=== PATIENT | female | born 1960 | race Caucasian/White ===

== ENCOUNTER → 2019-09-07 09:20 | Outpatient (BNVA) | payer MEDICARE, SELFPAY | PROVIDERS: Family Provider Nurse Practitioner; Visit Provider Nurse Practitioner | DX: F41.1 Generalized anxiety disorder (principal); F33.1 Major depressive disorder, recurrent, moderate; F17.211 Nicotine dependence, cigarettes, in remission | CPT/HCPCS: 99214 ==

== ENCOUNTER → 2019-11-27 07:52 | Outpatient (BNVA) | payer MEDICARE, SELFPAY | PROVIDERS: Family Provider Nurse Practitioner; Visit Provider Nurse Practitioner | DX: F33.1 Major depressive disorder, recurrent, moderate (principal); F41.1 Generalized anxiety disorder | CPT/HCPCS: 99213 ==

== ENCOUNTER → 2020-03-14 09:33 | Outpatient (BNVA) | payer MEDICARE, SELFPAY | PROVIDERS: Family Provider Nurse Practitioner; Visit Provider Nurse Practitioner | DX: F41.1 Generalized anxiety disorder (principal); F33.1 Major depressive disorder, recurrent, moderate; F17.211 Nicotine dependence, cigarettes, in remission | CPT/HCPCS: 99214 ==

== ENCOUNTER 2020-06-05 11:29 | Outpatient (CLI) | payer MEDICARE, SELFPAY ==
--- NOTE | 2020-06-05 11:38 | MM_ITS ---
WS: [id number] BILATERAL SCREENING DIGITAL MAMMOGRAM WITH CAD HISTORY: SCREENING COMPARISON: 01/20/2019 and 05/07/2017 Bilateral CC and MLO views submitted. Computer aided detection analyzed. Breast composition: The breasts are heterogeneously dense, which may obscure small masses. No suspici ous masses, microcalcifications or architectural distortion. MM/[place] [id number] IMPRESSION: BI-RADS: 1-Negative FOLLOW UP: 1 Year Follow-up
== END 2020-06-05 11:30 | disposition home or self-care (01) ==
LOC: RADSHAW 11:36
PROVIDERS: Family Provider Nurse Practitioner; PCP Nurse Practitioner; Visit Provider Nurse Practitioner
DX: Z12.31 Encounter for screening mammogram for malignant neoplasm of breast (principal)
CPT/HCPCS: 77067

== ENCOUNTER → 2020-06-28 08:59 | Outpatient (BNVA) | payer MEDICARE, SELFPAY | PROVIDERS: Family Provider Nurse Practitioner; PCP Nurse Practitioner; Visit Provider Nurse Practitioner | DX: F33.1 Major depressive disorder, recurrent, moderate (principal); F41.1 Generalized anxiety disorder | CPT/HCPCS: 99213 ==

== ENCOUNTER → 2020-09-27 12:19 | Outpatient (BNVA) | payer MEDICARE, SELFPAY | PROVIDERS: Family Provider Nurse Practitioner; PCP Nurse Practitioner; Visit Provider Nurse Practitioner | DX: F33.1 Major depressive disorder, recurrent, moderate (principal); F41.1 Generalized anxiety disorder; F17.211 Nicotine dependence, cigarettes, in remission | CPT/HCPCS: 99214 ==

== ENCOUNTER 2020-10-14 10:27 | Outpatient (CLI) | payer MEDICARE, SELFPAY ==
--- NOTE | 2020-10-14 10:47 | XR_ITS ---
WS: [id number] HAND LEFT TECHNIQUE: 3 views of the left hand CLINICAL INFORMATION: PAIN IN LEFT HAND COMPARISON: None. FINDINGS: Normal metacarpals. Normal MCP joint. Metacarpal heads are normal in appearance. Mild narrowing of th e IP joints. No evidence of acute fracture or dislocation. Radiocarpal joint: Mild narrowing Carpal bones: Normal. XR/XR hand LT min 3V* [id number] IMPRESSION: No acute fractures.
== END 2020-10-14 10:28 | disposition home or self-care (01) ==
PROVIDERS: PCP Nurse Practitioner; Visit Provider Nurse Practitioner Family
DX: M79.642 Pain in left hand (principal); M25.50 Pain in unspecified joint
CPT/HCPCS: 73130

== ENCOUNTER → 2020-11-08 08:18 | Outpatient (BNVA) | payer MEDICARE, SELFPAY | PROVIDERS: PCP Nurse Practitioner; Visit Provider Nurse Practitioner | DX: F33.1 Major depressive disorder, recurrent, moderate (principal); F41.1 Generalized anxiety disorder; F17.211 Nicotine dependence, cigarettes, in remission | CPT/HCPCS: 99214 ==

== ENCOUNTER → 2020-12-18 10:48 | Outpatient (BNVA) | payer MEDICARE, SELFPAY | PROVIDERS: PCP Nurse Practitioner; Referring Provider Nurse Practitioner Family; Visit Provider Specialist | DX: G56.02 Carpal tunnel syndrome, left upper limb (principal); G56.00 Carpal tunnel syndrome, unspecified upper limb | CPT/HCPCS: 36415; 73110; 80053; 85651; 86140; 86160; 86162; 86235; 86255; 86376; 86431 ==

== ENCOUNTER 2020-12-18 15:15 | Outpatient (CLI) | payer MEDICARE, SELFPAY | END 2020-12-18 15:16 | disposition home or self-care (01) | LOC: LAB 15:20 | PROVIDERS: PCP Nurse Practitioner; Visit Provider Specialist | DX: G56.00 Carpal tunnel syndrome, unspecified upper limb (principal) | CPT/HCPCS: 36415; 80053; 85651; 86140; 86160; 86162; 86235; 86255; 86376; 86431 ==

== ENCOUNTER → 2021-02-11 07:15 | Outpatient (BNVA) | payer MEDICARE, SELFPAY | PROVIDERS: PCP Nurse Practitioner; Visit Provider Nurse Practitioner | DX: F33.1 Major depressive disorder, recurrent, moderate (principal); F41.1 Generalized anxiety disorder; F17.211 Nicotine dependence, cigarettes, in remission | CPT/HCPCS: 99214 ==

== ENCOUNTER 2021-03-31 11:25 | Outpatient (CLI) | payer MEDICARE, SELFPAY ==
--- NOTE | 2021-03-31 11:37 | XR_ITS ---
WS: [id number] LATERAL LUMBAR SPINE: 3 view. Lateral radiographs are performed in upright neutral, flexion and extension to the patient's toleranc e. HISTORY: LOW BACK PAIN COMPARISON: 08/02/2006 Increase in lumbar lordosis. Fixation hardware is noted extending from T12 to L2. L2 retrolisthesis b y 3 to 4 mm does not change significantly with flexion or extension. The remaining lumbar vertebral b odies are normally aligned. The hardware as visualized is normally aligned. XR/XR lumbar spine f/e only [id number] IMPRESSION: 1. No lumbar spine instability. 2. Fixation hardware extends from T12 to L2. No complications or fracture.
== END 2021-03-31 11:26 | disposition home or self-care (01) ==
LOC: RAD 11:32
PROVIDERS: PCP Nurse Practitioner; Visit Provider Nurse Practitioner
DX: M54.5 Low back pain (principal)
CPT/HCPCS: 72120

== ENCOUNTER → 2021-05-21 08:13 | Outpatient (BNVA) | payer MEDICARE, SELFPAY | PROVIDERS: PCP Nurse Practitioner; Visit Provider Nurse Practitioner | DX: F33.1 Major depressive disorder, recurrent, moderate (principal); F41.1 Generalized anxiety disorder | CPT/HCPCS: 99214 ==

== ENCOUNTER → 2021-07-29 08:03 | Outpatient (BNVA) | payer MEDICARE, SELFPAY | PROVIDERS: PCP Nurse Practitioner; Visit Provider Nurse Practitioner | DX: F33.1 Major depressive disorder, recurrent, moderate (principal); F41.1 Generalized anxiety disorder; F17.211 Nicotine dependence, cigarettes, in remission | CPT/HCPCS: 99214 ==

== ENCOUNTER → 2021-08-16 18:58 | Outpatient (BNVA) | payer MEDICARE, SELFPAY | PROVIDERS: PCP Nurse Practitioner; Visit Provider Nurse Practitioner | DX: R39.9 Unspecified symptoms and signs involving the genitourinary system (principal); N39.0 Urinary tract infection, site not specified | CPT/HCPCS: 81000 ==

== ENCOUNTER 2021-08-18 11:51 | Outpatient (CLI) | payer MEDICARE, SELFPAY ==
--- NOTE | 2021-08-18 12:02 | MM_ITS ---
WS: [id number] SCREENING DIGITAL MAMMOGRAM WITH CAD HISTORY: SCREENING COMPARISON: 06/05/2020, 01/20/2019 and 05/07/2017 Bilateral CC and MLO views submitted. Computer aided detection analyzed. Breast composition: The breasts are heterogeneously dense, which may obscure small masses. Asymmetry seen on the RIGHT MLO projection central to the nipple measures 9 mm. This asymmetry is more prominen t as compared to 01/20/2019. Not definitely seen on the CC projection. There are benign calcifications in the LEFT breast. MM/[place] [id number] IMPRESSION: BI-RADS: 0-Incomplete: Need additional imaging evaluation FOLLOW UP: Need Additional Imaging RIGHT breast: Spot compression views (CC and MLO). True ML. Ultrasound to follo w if abnormality persists.
== END 2021-08-18 11:52 | disposition home or self-care (01) ==
LOC: RADSHAW 12:00
PROVIDERS: PCP Nurse Practitioner; Visit Provider Nurse Practitioner Family
DX: Z12.31 Encounter for screening mammogram for malignant neoplasm of breast (principal)
CPT/HCPCS: 77067

== ENCOUNTER 2021-09-09 11:16 | Outpatient (CLI) | payer MEDICARE, SELFPAY ==
--- NOTE | 2021-09-09 11:36 | US_ITS ---
WS: [id number] ADDITIONAL VIEWS RIGHT BREAST RIGHT breast ultrasound, limited HISTORY: BREAST ASYMMETRY COMPARISON: 08/18/2021, 06/05/2020, 01/20/2019 Compression views right CC and MLO projection. True ML also submitted. The nodular asymmetry in the anterior RIGHT breast is best seen on the MLO projection. On the CC proj ection this is probably overlying ducts. Ultrasound is directed posterior to the nipple. There are several mildly dilated ducts with no intral uminal filling defect or mass. The coalescence and overlapping of the ducts is probably what represen ts the lobulated soft tissue on the lateral projection of the mammogram. US/US breast RT limited* [id number] IMPRESSION: BI-RADS: 2-Benign FOLLOW-UP: 1 Year Follow-up
== END 2021-09-09 11:17 | disposition home or self-care (01) ==
LOC: RADSHAW 11:24
PROVIDERS: PCP Nurse Practitioner Family; Visit Provider Nurse Practitioner Family
DX: N64.89 Other specified disorders of breast (principal)
CPT/HCPCS: 76642; 77065

== ENCOUNTER → 2021-11-13 11:04 | Outpatient (BNVA) | payer MEDICARE, SELFPAY | PROVIDERS: PCP Nurse Practitioner Family; Visit Provider Nurse Practitioner | DX: F41.1 Generalized anxiety disorder (principal); F33.1 Major depressive disorder, recurrent, moderate; F17.211 Nicotine dependence, cigarettes, in remission | CPT/HCPCS: 99214 ==

== ENCOUNTER → 2021-12-07 11:02 | Outpatient (BNVA) | payer MEDICARE, SELFPAY | PROVIDERS: PCP Nurse Practitioner Family; Visit Provider Nurse Practitioner | DX: R82.90 Unspecified abnormal findings in urine (principal); N39.0 Urinary tract infection, site not specified | CPT/HCPCS: 81000 ==

== ENCOUNTER 2022-09-14 08:35 | Outpatient (CLI) | payer MEDICARE, SELFPAY ==
--- NOTE | 2022-09-14 08:40 | MM_ITS ---
WS: [id number] BILATERAL SCREENING DIGITAL TOMOSYNTHESIS MAMMOGRAM WITH CAD HISTORY: SCREENING COMPARISON: 02/05/2014, 03/28/2015, 01/20/2019 and 08/18/2021 Bilateral CC and MLO views with tomosynthesis and synthetic mammography submitted. Computer aided det ection analyzed. Breast composition: The breasts are heterogeneously dense, which may obscure small masses. No suspici ous masses, microcalcifications or architectural distortion. Asymmetry posterior to the RIGHT nipple is identified today but smaller than on the prior study of 08/18/2021. MM/[place] [id number] IMPRESSION: BI-RADS: 2-Benign FOLLOW UP: 1 Year Follow-up
== END 2022-09-14 08:36 | disposition home or self-care (01) ==
PROVIDERS: PCP Nurse Practitioner Family; Visit Provider Nurse Practitioner Family
DX: Z12.31 Encounter for screening mammogram for malignant neoplasm of breast (principal)
CPT/HCPCS: 77063; 77067

== ENCOUNTER → 2023-03-12 09:22 | Outpatient (BNVA) | payer MEDICARE, SELFPAY | PROVIDERS: PCP Nurse Practitioner Family; Visit Provider Obstetrics & Gynecology | DX: R32 Unspecified urinary incontinence (principal); R31.9 Hematuria, unspecified | CPT/HCPCS: 81000; 87086 ==

== ENCOUNTER → 2023-05-31 08:42 | Outpatient (BNVA) | payer MEDICARE, SELFPAY | PROVIDERS: PCP Nurse Practitioner Family; Visit Provider Obstetrics & Gynecology | DX: Z12.4 Encounter for screening for malignant neoplasm of cervix; N39.0 Urinary tract infection, site not specified; R34 Anuria and oliguria | CPT/HCPCS: 84315; 87624 ==

== ENCOUNTER → 2024-02-16 09:00 | Outpatient (BNVA) | payer MEDICARE, SELFPAY | PROVIDERS: PCP Nurse Practitioner Family; Visit Provider Nurse Practitioner Family | DX: L70.0 Acne vulgaris (principal); L82.0 Inflamed seborrheic keratosis; L82.1 Other seborrheic keratosis; L73.8 Other specified follicular disorders; L81.4 Other melanin hyperpigmentation; D18.01 Hemangioma of skin and subcutaneous tissue | CPT/HCPCS: 99204 ==

== ENCOUNTER → 2024-03-23 09:15 | Outpatient (BNVA) | payer MEDICARE, SELFPAY | PROVIDERS: PCP Nurse Practitioner Family; Referring Provider Nurse Practitioner Family; Visit Provider Student in an Organized Health Care Education/Training Program | DX: Z12.11 Encounter for screening for malignant neoplasm of colon (principal) | CPT/HCPCS: 99024; 99204 ==

== ENCOUNTER → 2024-04-04 09:27 | Outpatient (BNVA) | payer MEDICARE, SELFPAY | PROVIDERS: PCP Nurse Practitioner Family; Visit Provider Nurse Practitioner Family | DX: L82.0 Inflamed seborrheic keratosis (principal); B35.3 Tinea pedis | CPT/HCPCS: 17110; 99213 ==

== ENCOUNTER 2024-04-18 05:53 | Day surgery (SDC) | payer MEDICARE, SELFPAY ==
--- OUTSIDE RECORDS SUMMARY | 2024-03-31 13:00 | XMS_ITS | Patient Health Record ---
Author Name Unknown Organization [facility] Address [address] [place] [address] Care Team Providers Care Radio Electrician Name Role Phone NILAY MAURICE Unavailable [phone] Reason For Referral No Information Encounters Encounter Location Date Provider Diagnosis [facility] [address] [facility] [place] [address] 05/26/2023 NILAY MAURICE Plan Of Treatment No Information Insurance Providers Payer Name Payer Address Payer Phone Subscriber Number Group Number Insured Name Patient Relationship to Insured Coverage Start Date Coverage End Date [facility] [address] [address] [place], [place] [id number] Cindy Mueller Self - patient is the insured
--- OUTSIDE RECORDS SUMMARY | 2024-03-31 13:00 | XMS_ITS ---
Author Name Unknown Organization [facility] Address [address] [place] [address] Care Team Providers Care Cloth Tearer Name Role Phone NILAY MAURICE [phone] REASON FOR VISIT Referral- UTI's Encounters Encounter Location Date Provider Diagnosis [facility] [address] [place] [facility] [place] [address] 05/26/2023 NILAY MAURICE Plan Of Treatment No Information Progress Notes * Maddison GAMEZB:1960 (63 yo F)Acc No.[id number]:05/26/2023 Patient:?Cindy GAMEZ :1960???Age:63 Y???Sex:Female Address:[facility], [place] [address] * true * Date:? Generated for Alla joseph/Jean-Paul/eTransmitting on:?03/31/2024 12:59 PM CDT
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
--- OUTSIDE RECORDS SUMMARY | 2024-04-18 05:55 | XMS_ITS | Patient Health Record ---
Author Name Unknown Organization [facility] Address [address] [place] [address] Care Team Providers Care Claims Vice President Name Role Phone NILAY MAURICE Unavailable [phone] Reason For Referral No Information Encounters Encounter Location Date Provider Diagnosis [facility] [address] [place] [address] 05/26/2023 NILAY MAURICE Plan Of Treatment No Information Insurance Providers Payer Name Payer Address Payer Phone Subscriber Number Group Number Insured Name Patient Relationship to Insured Coverage Start Date Coverage End Date [facility] [address] [address] [place], [place] [id number] Cindy Mueller Self - patient is the insured
--- OUTSIDE RECORDS SUMMARY | 2024-04-18 05:55 | XMS_ITS ---
Author Name Unknown Organization [facility] Address [address] [facility] [place] [address] Care Team Providers Care Chief Underwriter Name Role Phone NILAY MUARICE [phone] REASON FOR VISIT Referral- UTI's Encounters Encounter Location Date Provider Diagnosis [facility] [address] [place] [address] 05/26/2023 NILAY MAURICE Plan Of Treatment No Information Progress Notes * Maddison GAMEZB:1960 (63 yo F)Acc No.[id number]:05/26/2023 Patient:?Cindy GAMEZ :1960???Age:63 Y???Sex:Female Address:[facility], [place] [address] * true * Date:? Generated for Alla joseph/Jean-Paul/eTfedericosmitting on:?04/18/2024 05:55 AM CDT
--- OUTSIDE RECORDS SUMMARY | 2024-04-18 05:55 | XMS_ITS ---
Author Name Unknown Organization [facility] Address [address] [place], [place] [address] Care Team Providers Care Automotive Parts Manager Name Role Phone Ashley Lara Primary Care Provider Unavail able Wilder RICE, Glenn Unavailable [phone] Jazmin AVILA, Pita Unavailable Unavailable Latrice Núñez Unavailable [phone] ALLERGIES Allergen (clinical drug ingredient) Drug/Non Drug [...] chronic pain (G89.29) Active confirmed Chronic pain (31560982) VITAL SIGNS Temperature 97.6 degrees Fahrenheit 09/23/19 24 Height 65 in 09/23/2023 Weight 182.4 lbs 09/23/2023 Oximetry 93 % 09/23/2023 BMI 30.35 kg/m2 09/23/2023 Encounters Encounter Location Date Provider Diagnosis [facility] [place], [place] [phone] 09/23/2023 Latrice Hull Vertebrogenic low ba ck pain M54.51 ; Other chronic pain G89.29 ; Spondylosis without myelopathy or radiculopathy, lumbar region M47.816 ; Sacroiliitis, not elsewhere classified M46.1 ; Other sleep disorders G47.8 and [facility] (current) use of opiate analgesic Z79.891 ASSESSMENTS [...] relation to sleep for safety concerns. 09/23/2023 terminal block assembler (current) use of opiate analgesic (ICD-10 - [...] in relation to sleep for safety concerns. [facility] (current) use of opiate analge 2022 opioid [...] function has a b ladder stimulator Medications Jewett (hydrocodone / acetaminoph en) 325 mg-5 mg, [...]
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
[2024-04-18 06:14] VITALS: BP 120/85; PULSE 106; RESP 18; TEMP 36.1; O2SAT 94
[2024-04-18] MEDS: sodium chloride 0.9% 1,000 ML 30 ML IV (06:20)
[2024-04-18 06:24] LABS: Glucose Point of Care 138 mg/dL (70-110)
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
[2024-04-18 06:52] VITALS: BMI 29.9
--- NOTE | 2024-04-18 07:04 | W.PM.OPSUD ---
Surgery/Procedure H&P Update DATE OF PROCEDURE: April 18, 2024 DATE H&P PERFORMED: 03/23/24 H&P UPDATE INFORMATION: I have reviewed H&P completed within last 30 days, I have examined patient prior to procedure and No changes to prior documentation PLANNED PROCEDURE: Operation Date: 04/18/24 07:00 Proposed Procedures p Colonoscopy 74477, G0105, Z12.11(Not Applicable) - Hebert Zaidi MD
[2024-04-18 07:32] VITALS: BP 125/82; PULSE 90; RESP 14; TEMP 36.1; O2SAT 94
[2024-04-18 07:44] VITALS: BP 132/79; PULSE 81; RESP 16; O2SAT 97
[2024-04-18 07:50] VITALS: BP 130/72; PULSE 72; RESP 18; O2SAT 96
--- NOTE | 2024-04-18 08:15 | ANE.PACU2 ---
Inpatient post-anesthesia follow up: Airway intact: Yes Vital signs: Temperature 97.0 F Pulse Rate 72 Respiratory Rate 18 Blood Pressure 130/72 Pulse Oximetry 96 Oxygen Delivery Me thod Room Air Oxygen Flow Rate Fraction of Inspir ed Oxygen Hydration adequate: Yes Nausea and vomiting: No Pain level: 1 Mental status: Baseline
== END 2024-04-18 08:15 | disposition home or self-care (01) ==
PROVIDERS: PCP Nurse Practitioner Family; Visit Provider Student in an Organized Health Care Education/Training Program
PROC: 0DJD8ZZ Inspection of Lower Intestinal Tract, Via Natural or Artificial Opening Endoscopic (ICD-10-PCS; CPT 45378; principal; 2024-04-18 07:00)
DX: Z12.11 Encounter for screening for malignant neoplasm of colon (principal); K57.30 Diverticulosis of large intestine without perforation or abscess without bleeding; D12.8 Benign neoplasm of rectum; Z79.82 Long term (current) use of aspirin; Z79.84 Long term (current) use of oral hypoglycemic drugs; F17.210 Nicotine dependence, cigarettes, uncomplicated; E11.9 Type 2 diabetes mellitus without complications
CPT/HCPCS: 36416; 45380; 82962; 88305; J2704; J3490; J7030

== ENCOUNTER 2024-04-20 13:11 | Outpatient (CLI) | payer MEDICARE, SELFPAY ==
--- NOTE | 2024-04-20 13:17 | XR_ITS ---
WS: [email or web address] Exam: XR knee LT 1-2V [id number] Date/Time of Exam: 04/20/2024 1:17 PM Reason For Exam: PAIN IN L KNEE No fracture or dislocation. The joint compartments are relatively well-maintained. No joint effusion. Normal soft tissues. XR/XR knee LT 1-2V [id number] IMPRESSION: 1. Negative LEFT knee.
== END 2024-04-20 13:12 | disposition home or self-care (01) ==
LOC: RAD 13:12
PROVIDERS: PCP Nurse Practitioner Family; Visit Provider Nurse Practitioner Family
DX: M25.562 Pain in left knee (principal)
CPT/HCPCS: 73560

== ENCOUNTER → 2024-05-09 09:20 | Outpatient (BNVA) | payer MEDICARE, SELFPAY | PROVIDERS: PCP Nurse Practitioner Family; Visit Provider Student in an Organized Health Care Education/Training Program | DX: Z09 Encounter for follow-up examination after completed treatment for conditions other than malignant neoplasm (principal) | CPT/HCPCS: 99214 ==

== ENCOUNTER 2025-01-22 13:30 | Outpatient (CLI) | payer MEDICARE, SELFPAY ==
--- NOTE | 2025-01-22 13:42 | MM_ITS ---
WS: [id number] BILATERAL 3D TOMOSYNTHESIS DIGITAL DIAGNOSTIC MAMMOGRAPHY WITH CAD CLINICAL INFORMATION: MASTODYNIA HISTORY: LEFT breast lumps. Pain and soreness. COMPARISON: 2022 TECHNIQUE: Bilateral CC, MLO, and ML views. FINDINGS: The breasts are composed of heterogeneous fibroglandular density, which can limit the detection of small underlying mass lesions. Incidental punctate and lucent centered calcifications. Ultrasound of the area of palpable concern LEFT breast described below. ULTRASOUND BREAST LEFT TECHNIQUE: Ultrasound left breast focused area of concern. CLINICAL INFORMATION: MASTODYNIA FINDINGS: Ultrasound LEFT breast at the 2 o'clock position 10 cm from the nipple. Normal underlying parenchymal tissue. No suspicious findings in this area. Ultrasound LEFT posterior axilla patient directed. No suspicious abnormalities along the LEFT axillary tail. Tiny 3 mm cyst at the 1 o'clock position 5 cm from the nipple in the area of patient concern patient directed. Findings are benign. MM/MM diag tomosynthesis [id number] IMPRESSION: DENSITY: The breasts are heterogeneously dense, which may obscure small masses. BI-RADS: 2 - Benign FOLLOW UP: 1 Year Follow-up Recommend return to annual screening mammography.
== END 2025-01-22 13:31 | disposition home or self-care (01) ==
LOC: RAD 13:31
PROVIDERS: PCP Nurse Practitioner Family; Visit Provider Nurse Practitioner Family
DX: N60.02 Solitary cyst of left breast (principal); R92.333 Mammographic heterogeneous density, bilateral breasts
CPT/HCPCS: 76642; 77062; G0279

== ENCOUNTER 2025-06-01 11:10 | Outpatient (CLI) | payer MEDICARE, SELFPAY ==
--- NOTE | 2025-06-01 11:19 | XR_ITS ---
WS: [email or web address] Exam: XR cervical spine min 6V [id number] Date/Time of Exam: 06/01/2025 11:25 AM Reason For Exam: ANESTHESIA OF SKIN/CERVICALGIA DLP: No fracture or malalignment. There is straightening. No flexion or extension instability seen. Facet DJD at all levels. Spondylosis and disc space narrowing at C5-6 and C6-7. There is narrowing of the LEFT neural foramen at C6-7 due to spurring. There is also narrowing of the RIGHT neural foramen at C5-6 and C6-7. Normal paraspinal soft tissues. The dens is intact. XR/XR cervical spine min 6V [id number] IMPRESSION: 1. No fracture or malalignment. No instability. 2. Moderate degenerative changes as detailed above.
--- NOTE | 2025-06-01 11:19 | XR_ITS ---
WS: [email or web address] Exam: XR KUB [id number] Date/Time of Exam: 06/01/2025 11:25 AM Reason For Exam: R SIDE FLANK PAIN Comparison 01/01/2009. No bowel obstruction or free air. Constipation. No sign of organ enlargement or abnormal abdominal calcification. Spinal fusion from T12-L2. No obvious hardware complication. XR/XR KUB [id number] IMPRESSION: 1. Constipation. No acute process identified. 2. No obvious calcification is identified in the region of the kidneys.
== END 2025-06-01 11:11 | disposition home or self-care (01) ==
PROVIDERS: PCP Nurse Practitioner Family; Visit Provider Nurse Practitioner Family
DX: R20.0 Anesthesia of skin (principal); Z86.69 Personal history of other diseases of the nervous system and sense organs; R10.A1 Flank pain, right side; K59.00 Constipation, unspecified; M43.25 Fusion of spine, thoracolumbar region; M47.812 Spondylosis without myelopathy or radiculopathy, cervical region; M50.322 Other cervical disc degeneration at C5-C6 level; M50.323 Other cervical disc degeneration at C6-C7 level; M48.02 Spinal stenosis, cervical region
CPT/HCPCS: 72052; 74018